=== PATIENT | male | born 1980 | race Caucasian/White ===

== ENCOUNTER 2017-10-05 10:12 | Emergency (ER) | payer BC ==
[2017-10-05] MEDS ORDERED: NA BORATE/BORIC AC/H2O/NACL 120 ML OPHTH IRRIG SOLN ONE (11:31)
[2017-10-05] MEDS ORDERED: TETRACAINE HCL 0.5% 4 ML OPHTH SOLN ONE (11:31)
[2017-10-05] MEDS ORDERED: FLUORESCEIN SODIUM 0.6 MG STRIP ONE (11:32)
[2017-10-05] MEDS ORDERED: TETANUS/DIPHTHERIA TOXOID [ADULT] 0.5 ML VIAL IM ONE (12:26)
[2017-10-05] MEDS ORDERED: ERYTHROMYCIN BASE 0.5% OPHTH OINT 1 GM TUBE ONE (12:26)
== END 2017-10-05 12:34 | disposition home or self-care (01) ==
LOC: EDH 10:12
DX: T15.02XA Foreign body in cornea, left eye, initial encounter (principal); Z98.890 Other specified postprocedural states; X58.XXXA Exposure to other specified factors, initial encounter; Y93.89 Activity, other specified; Y92.89 Other specified places as the place of occurrence of the external cause; Y99.8 Other external cause status
CPT/HCPCS: 65220; 90471; 90714